=== PATIENT | male | born 1955 | race African-American/Black ===

== ENCOUNTER 2017-03-26 13:58 | Emergency (ER) | payer MEDICARE, OTHER ==
[~2017-03-26 13:58] MED LIST: 1-ME1LIQ PO; ADVAI100I PO; ALBU1AER INH; CANA10002 RECTAL; DILA2TAB4 PO; ENOX40P SQ; HYDR200T3 PO; METO25 PO; SULF500T35 PO; Z.0.COMMODE-3:1; Z.0.WALKERFRONT
[2017-03-26 14:00] VITALS: BP 153/92; PULSE 82; RESP 20; TEMP 98.2; O2SAT 99
--- NOTE | 2017-03-26 14:50 | PD ---
HPI Chief Complaint: Abdominal Pain Time Seen by Provider: 14:50 Travel History International Travel<30 days: No Contact w/Intl Traveler<30days: No Traveled to known affect area: No History of Present Illness HPI 61 YO male with PMH of HTN, non-Hodgkin's lymphoma, chronic airway obstruction, ulcerative colitis presents to the ED for evaluation of "2 week" history of nausea, lower abdominal discomfort, diarrhea and blood in the stool. Patient states this is similar to previous episodes of colitis and treated at home with sulfasalazine with no improvement of symptoms. Patient also complains of sinus congestion and SOB. PFSH Past Medical History Autoimmune Disease: No Blood Disorders: No Anxiety: No Depression: No Cancer: Yes (lymphoma, NON-Hodgkins) Cardiovascular Problems: No Chemotherapy: Yes (LAST [place] ) Diabetes: No Diminished Hearing: No Endocrine: No Glaucoma: No Genitourinary: Yes (HX BLOCKAGE IN PENIS - REMOVED X 2 NO CURRENT ) Hepatitis: Yes (HEPATITIS C) Hiatal Hernia: No Hypertension: Yes Immune Disorder: Yes (LUPUS ) Implanted Vascular Access Dvce: Yes (LCW PORT-REMOVED) Musculoskeletal: Yes (LEFT HIP PAIN ) Neurologic: No Psychiatric: No Reproductive: No Respiratory: No (SHORTNESS OF BREATH SINCE CHEMO STARTED 2008) Sickle Cell Disease: No Thyroid Disease: No Past Surgical History Abdominal Surgery: Yes (bx left groin pt states lymphoma is in remission) AICD: No Arteriovenous Shunt: No Cardiac Surgery: No Ear Surgery: No Endocrine Surgery: No Eye Surgery: No Genitourinary Surgery: Yes (cysto; BLOCKAGE EXCISED FROM PENIS X 2) Insulin Pump: No Joint Replacement: No Neurologic Surgery: No Oral Surgery: No Pacemaker: No Thoracic Surgery: No Other Surgery: Yes (PORT PLACEMENT/REMOVAL) Social History Alcohol Use: No Tobacco Use: No Substance Use: No (H/O IV DRUG USE 30 YRS AGO) Allergies-Medications (Allergen,Severity, Reaction): Coded Allergies: Ketorolac (Verified Allergy, Severe, EDEMA, 03/26/17) Lorcet (Verified Allergy, Severe, RASH ITCHING, 03/26/17) Lortab (Verified Allergy, Severe, ITCHING, 03/26/17) Penicillin (Verified Allergy, Severe, FACIAL SWELLING, 03/26/17) Percocet (Verified Allergy, Severe, Itching, 03/26/17) Propoxyphene (Verified Allergy, Severe, ITCHING, 03/26/17) Reported Meds & Prescriptions Reported Meds & Active Scripts Active Reported Hydroxychloroquine (Hydroxychloroquine Sulfate) 200 Mg Tab 200 Mg PO BID Takw with food Canasa Supp (Mesalamine) 1,000 Mg Supp 1,000 Mg RECTAL HS Amlodipine (Amlodipine Besylate) 5 Mg Tab 5 Mg PO DAILY Advair Diskus Inh (Fluticasone-Salmeterol Inh) 100-50 Mcg/Blist Aer 1 Puff INH BID Rinse mouth after use. Proair Hfa 8.5 GM Inh (Albuterol Sulfate) 90 Mcg/Act Aer 2 Puff INH Q6H PRN 108 mcg/actuation Sulfasalazine 500 Mg Tab 1,500 Mg PO Q12HR Review of Systems Except as stated in HPI: all other systems reviewed are Neg Physical Exam Narrative GENERAL: Well-nourished, well-developed black male in no acute distress. SKIN: Focused skin assessment warm/dry. HEAD: Normocephalic. EYES: No scleral icterus. No injection or drainage. ENT: Pearly wang tympanic membranes bilaterally. No tenderness to palpation of the facial sinuses. Oropharynx without erythema, edema or exudate. NECK: Supple, trachea midline. No JVD or lymphadenopathy. CARDIOVASCULAR: Regular rate and rhythm without murmurs, gallops, or rubs. RESPIRATORY: Breath sounds equal bilaterally. Diffuse end expiratory wheezing in all lung banks. No accessory muscle use. GASTROINTESTINAL: Abdomen soft, nondistended. Mildly tender to palpation in the right lower quadrant. No palpable masses. Active bowel sounds. MUSCULOSKELETAL: No cyanosis, or edema. Patient is ambulatory, moves the extremities spontaneously. RECTAL EXAM: No masses or tenderness, stool is brown. Guaiac positive. BACK: Nontender without obvious deformity. No CVA tenderness. Data Data Last Documented VS Vital Signs Date Time Temp Pulse Resp B/P Pulse Ox O2 Delivery O2 Flow Rate FiO2 03/26/17 16:12 78 18 137/65 97 Room Air 03/26/17 14:00 98.2 Orders Complete Blood Count With Diff (03/26/17 14:10) Comprehensive Metabolic Panel (03/26/17 14:10) Urinalysis - C+S If Indicated (03/26/17 14:10) Lipase (03/26/17 14:10) Chest, Single Ap (03/26/17 15:02) Methylprednisolone So Succ Inj (Solumedr (03/26/17 15:15) Albuterol-Ipratropium Neb (Duoneb Neb) (03/26/17 15:15) Iv Access Insert/Monitor (03/26/17 15:02) NPO (03/26/17 15:02) Sodium Chlor 0.9% 1000 Ml Inj (Ns 1000 M (03/26/17 15:02) Labs Laboratory Tests Test 03/26/17 03/26/17 14:38 14:54 Urine Color DARK-YELLOW Urine Turbidity CLEAR Urine pH 6.0 Urine Specific [place] 1.016 Urine Protein NEG mg/dL Urine Glucose (UA) NEG mg/dL Urine Ketones NEG mg/dL Urine Occult Blood NEG Urine Nitrite NEG Urine Bilirubin NEG Urine Urobilinogen LESS THAN 2.0 MG/DL Urine Leukocyte Esterase NEG Urine WBC 1 /hpf Urine Mucus FEW /lpf Microscopic Urinalysis Comment CULT NOT INDICATED White Blood Count 5.3 TH/MM3 Red Blood Count 6.10 MIL/MM3 Hemoglobin 13.9 GM/DL Hematocrit 43.6 % Mean Corpuscular Volume 71.5 FL Mean Corpuscular Hemoglobin 22.8 PG Mean Corpuscular Hemoglobin 31.9 % Concent Red Cell Distribution Width 16.0 % Platelet Count 224 TH/MM3 Mean Platelet Volume 7.9 FL Neutrophils (%) (Auto) 54.3 % Lymphocytes (%) (Auto) 22.7 % Monocytes (%) (Auto) 11.1 % Eosinophils (%) (Auto) 11.5 % Basophils (%) (Auto) 0.4 % Neutrophils # (Auto) 2.9 TH/MM3 Lymphocytes # (Auto) 1.2 TH/MM3 Monocytes # (Auto) 0.6 TH/MM3 Eosinophils # (Auto) 0.6 TH/MM3 Basophils # (Auto) 0.0 TH/MM3 CBC Comment DIFF FINAL Differential Comment Sodium Level 140 MEQ/L Potassium Level 3.8 MEQ/L Chloride Level 105 MEQ/L Carbon Dioxide Level 26.5 MEQ/L Anion Gap 9 MEQ/L Blood Urea Nitrogen 5 MG/DL Creatinine 0.77 MG/DL Estimat Glomerular Filtration 124 ML/MIN Rate Random Glucose 67 MG/DL Calcium Level 9.1 MG/DL Total Bilirubin 0.3 MG/DL Aspartate Amino Transf 13 U/L (AST/SGOT) Alanine Aminotransferase 14 U/L (ALT/SGPT) Alkaline Phosphatase 72 U/L Total Protein 7.8 GM/DL Albumin 4.0 GM/DL Lipase 140 U/L [facility] Medical Decision Making Medical Screen Exam Complete: Yes Emergency Medical Condition: Yes Differential Diagnosis colitis versus UC flare versus rectal bleeding versus anemia versus exacerbation of chronic airway disease versus other Narrative Course 61 YO male with PMH of HTN, non-Hodgkin's lymphoma, chronic airway obstruction, ulcerative colitis presents to the ED for evaluation of "2 week" history of nausea, lower abdominal discomfort, diarrhea and blood in the stool. Patient states this is similar to previous episodes of colitis and treated at home with sulfasalazine with no improvement of symptoms. Patient also complains of sinus congestion and SOB. Vitals reviewed. Patient is well-appearing on physical exam. There are diffuse expiratory wheezes in the bilateral lung banks. Abdomen soft, mildly tender to palpation in the right upper quadrant. Rectal exam guaiac positive. IV was established. Patient was administered 1 L normal saline, IV Solu-Medrol, DuoNeb 2. Lab work is reassuring--no anemia, no leukocytosis. I spoke with Dr. Galdamez who recommends following current medication regimen at home, follow-up in the office on Wednesday. I discussed this plan of care with the patient. He reports improvement of his breathing symptoms after DuoNeb treatment. He indicated understanding of the discharge instructions and is agreeable with the care plan. He is stable and discharged home. HemaPrompt Point of Care Internal Pos. & Neg. Controls: Passed Fecal Specimen Occult Blood: Positive Diagnosis Primary Impression: Ulcerative colitis with rectal bleeding Qualified Code: K51.911 - Ulcerative colitis with rectal bleeding, unspecified location Referrals: Gurvinder Galdamez MD Patient Instructions: General Instructions, Ulcerative Colitis (ED) Additional Instructions: Rest, hydrate. Resume at home respiratory medications. Continue with sulfasalazine and ASA suppositories. Call Dr. Galdamez's office tomorrow for follow up appointment. Disposition: 01 DISCHARGE HOME Condition: Stable Shawna Hayes Mar 26, 2017 14:50
[2017-03-26] MEDS ORDERED: AMLO5TAB2 PO (14:59)
[2017-03-26] MEDS ORDERED: ALBUAER3 INH (14:59)
[2017-03-26] MEDS ORDERED: CANA10002 RECTAL (14:59)
[2017-03-26] MEDS ORDERED: SULF500T3 PO (14:59)
[2017-03-26] MEDS ORDERED: ADVA100A INH (14:59)
[2017-03-26] MEDS ORDERED: HYDR200T3 PO (14:59)
[2017-03-26] MEDS ORDERED: SODIUM CHLOR 0.9% 1000 ML INJ 1,000 ML IV SCH (15:02)
[2017-03-26 15:03] LABS: AUTOMATED NEUTROPHIL # 2.9 TH/MM3 (1.8-7.7); BASOPHIL % 0.4 % (0.0-2.0); EOSINOPHIL # 0.6 TH/MM3 (0-0.4); EOSINOPHIL % 11.5 % (0.0-4.0); HEMATOCRIT 43.6 % (39.0-51.0); HEMO FLAGS DIFF FINAL; LYMPH % 22.7 % (9.0-44.0); LYMPHOCYTE # 1.2 TH/MM3 (1.0-4.8); MEAN CELL VOLUME 71.5 FL (80.0-100.0); MEAN CORPUSCULAR HEMOGLOBIN 22.8 PG (27.0-34.0); MEAN CORPUSCULAR HGB CONC 31.9 % (32.0-36.0); MONO % 11.1 % (0.0-8.0); NEUT % 54.3 % (16.0-70.0); PLATELET COUNT 224 TH/MM3 (150-450); WHITE BLOOD COUNT 5.3 TH/MM3 (4.0-11.0)
[2017-03-26 15:08] LABS: BLOOD, URINE NEG (NEG); COMMENT (UR) CULT NOT INDICATED; CULTURE IF INDICATED CULT NOT INDICATED; GLUCOSE,URINE NEG (NEG); KETONE, URINE NEG (NEG); MUCUS URINE FEW /lpf (OCC); NITRITE,URINE NEG (NEG); URINE COLOR DARK-YELLOW (YELLW/STRAW)
[2017-03-26] MEDS ORDERED: methylPREDNISolone SOD SUCC 125 MG/2 ML VIAL IVP ONE (15:15)
--- NOTE | 2017-03-26 15:45 | RADRPT ---
EXAM DATE/TIME: 03/26/2017 15:29 [place] COMPARISON: CHEST SINGLE AP, January 21, 2016, 20:27. INDICATIONS : Shortness of breath. MEDICAL HISTORY : Hypertension. SURGICAL HISTORY : None. ENCOUNTER: Initial ACUITY: 2 weeks PAIN SCORE: 0/10 LOCATION: chest FINDINGS: A single view of the chest demonstrates the lungs to be symmetrically aerated without evidence of mas s, infiltrate or effusion. The cardiomediastinal contours are unremarkable. Osseous structures are intact. CONCLUSION: No acute disease. Karthik Wilson MD FACR on March 26, 2017 at 15:43 Board Certified Radiologist. This report was verified electronically.
[2017-03-26 15:48] LABS: ANION GAP 9 MEQ/L (5-15); AST (GOT) 13 U/L (15-37); BICARBONATE 26.5 MEQ/L (21.0-32.0); BLOOD UREA NITROGEN 5 MG/DL (7-18); CHLORIDE 105 MEQ/L (98-107); GLOMERULAR FILTRATION RATE 124 ML/MIN (>89); POTASSIUM 3.8 MEQ/L (3.5-5.1); SODIUM (NA) 140 MEQ/L (136-145)
[2017-03-26 15:50] LABS: ALKALINE PHOSPHATASE 72 U/L (45-117); ALT (GPT) 14 U/L (12-78); TOTAL BILIRUBIN ADULT 0.3 MG/DL (0.2-1.0)
[2017-03-26 16:12] VITALS: BP 137/65; PULSE 78; RESP 18; O2SAT 97
[2017-03-26] MEDS: RESP: ALBUTEROL 2.5 MG/IPRATROPIUM 0.5 MG NEB (SCH) INH (16:45)
--- NOTE | 2017-03-26 16:59 | PD ---
Data Data Last Documented VS Vital Signs Date Time Temp Pulse Resp B/P Pulse Ox O2 Delivery O2 Flow Rate FiO2 03/26/17 16:12 78 18 137/65 97 Room Air 03/26/17 14:00 98.2 Orders Complete Blood Count With Diff (03/26/17 14:10) Comprehensive Metabolic Panel (03/26/17 14:10) Urinalysis - C+S If Indicated (03/26/17 14:10) Lipase (03/26/17 14:10) Chest, Single Ap (03/26/17 15:02) Methylprednisolone So Succ Inj (Solumedr (03/26/17 15:15) Albuterol-Ipratropium Neb (Duoneb Neb) (03/26/17 15:15) Iv Access Insert/Monitor (03/26/17 15:02) NPO (03/26/17 15:02) Sodium Chlor 0.9% 1000 Ml Inj (Ns 1000 M (03/26/17 15:02) Labs Laboratory Tests Test 03/26/17 03/26/17 14:38 14:54 Urine Color DARK-YELLOW Urine Turbidity CLEAR Urine pH 6.0 Urine Specific [place] 1.016 Urine Protein NEG mg/dL Urine Glucose (UA) NEG mg/dL Urine Ketones NEG mg/dL Urine Occult Blood NEG Urine Nitrite NEG Urine Bilirubin NEG Urine Urobilinogen LESS THAN 2.0 MG/DL Urine Leukocyte Esterase NEG Urine WBC 1 /hpf Urine Mucus FEW /lpf Microscopic Urinalysis Comment CULT NOT INDICATED White Blood Count 5.3 TH/MM3 Red Blood Count 6.10 MIL/MM3 Hemoglobin 13.9 GM/DL Hematocrit 43.6 % Mean Corpuscular Volume 71.5 FL Mean Corpuscular Hemoglobin 22.8 PG Mean Corpuscular Hemoglobin 31.9 % Concent Red Cell Distribution Width 16.0 % Platelet Count 224 TH/MM3 Mean Platelet Volume 7.9 FL Neutrophils (%) (Auto) 54.3 % Lymphocytes (%) (Auto) 22.7 % Monocytes (%) (Auto) 11.1 % Eosinophils (%) (Auto) 11.5 % Basophils (%) (Auto) 0.4 % Neutrophils # (Auto) 2.9 TH/MM3 Lymphocytes # (Auto) 1.2 TH/MM3 Monocytes # (Auto) 0.6 TH/MM3 Eosinophils # (Auto) 0.6 TH/MM3 Basophils # (Auto) 0.0 TH/MM3 CBC Comment DIFF FINAL Differential Comment Sodium Level 140 MEQ/L Potassium Level 3.8 MEQ/L Chloride Level 105 MEQ/L Carbon Dioxide Level 26.5 MEQ/L Anion Gap 9 MEQ/L Blood Urea Nitrogen 5 MG/DL Creatinine 0.77 MG/DL Estimat Glomerular Filtration 124 ML/MIN Rate Random Glucose 67 MG/DL Calcium Level 9.1 MG/DL Total Bilirubin 0.3 MG/DL Aspartate Amino Transf 13 U/L (AST/SGOT) Alanine Aminotransferase 14 U/L (ALT/SGPT) Alkaline Phosphatase 72 U/L Total Protein 7.8 GM/DL Albumin 4.0 GM/DL Lipase 140 U/L MDM Supervised Visit with RADHA: Yes Narrative Course The history, exam, and medical decision-making in the associated midlevel provider note were completed with my assistance. I reviewed and agree with the findings presented. I attest that I had a [id number] encounter with the patient on the same day, and personally performed and documented my assessment and findings in the medical record. *My assessment and Findings: This is a 61-year-old male who has a history of ulcerative colitis who presents to the emergency department with some lower abdominal discomfort, blood in his stool as well as some wheezing. He was given prednisone, DuoNeb's and labs were obtained which were all reassuring. His abdomen is benign. We spoke to Dr. Galdamez who is seeing the patient on Wednesday episode requested no additional treatment for his colitis at this time. Patient will be discharged home as he is very well-appearing. Diagnosis Primary Impression: Ulcerative colitis with rectal bleeding Qualified Code: K51.911 - Ulcerative colitis with rectal bleeding, unspecified location Referrals: Gurvinder Galdamez MD Patient Instructions: General Instructions, Ulcerative Colitis (ED) Departure Forms: Tests/Procedures Additional Instruction: Rest, hydrate. Resume at home respiratory medications. Continue with sulfasalazine and ASA suppositories. Call Dr. Galdamez's office tomorrow for follow up appointment. Disposition: 01 DISCHARGE HOME Condition: Stable Katty Varma MD Mar 26, 2017 16:59
== END 2017-03-26 17:13 | disposition home or self-care (01) ==
LOC: NEPD 13:58
DX: K51.911 Ulcerative colitis, unspecified with rectal bleeding (principal); R06.2 Wheezing; R09.81 Nasal congestion; R06.02 Shortness of breath; I10 Essential (primary) hypertension; C85.90 Non-Hodgkin lymphoma, unspecified, unspecified site; Z87.09 Personal history of other diseases of the respiratory system; Z87.19 Personal history of other diseases of the digestive system; Z87.448 Personal history of other diseases of urinary system; Z86.19 Personal history of other infectious and parasitic diseases; Z86.2 Personal history of diseases of the blood and blood-forming organs and certain disorders involving the immune mechanism; Z87.39 Personal history of other diseases of the musculoskeletal system and connective tissue
CPT/HCPCS: 71010; 80053; 81001; 83690; 85025; 94640; 94664; 96361; 96374; 99284; J2930; J7030

== ENCOUNTER → 2017-05-13 | Outpatient (CLI) | payer MEDICARE, OTHER ==
[~2017-05-13] MED LIST changes: -1-ME1LIQ PO; +ADVA100A INH; -ADVAI100I PO; -ALBU1AER INH; +ALBUAER3 INH; +AMLO5TAB2 PO; -DILA2TAB4 PO; -ENOX40P SQ; -METO25 PO; +SULF500T3 PO; -SULF500T35 PO; -Z.0.COMMODE-3:1; -Z.0.WALKERFRONT
--- NOTE | 2017-05-27 11:25 | RSPPFT ---
DATE OF PROCEDURE: 05/13/17 COMMENTS: Spirometry demonstrates an FEV1 of 3.1 at 87% of predicted, FVC of 4.2 at 94%, FEV1/FVC ratio is 74%. The FEF 25-75 is 66% of predicted. Post-bronchodilator study demonstrated minimal improvements in the FEF 25-75. Lung volumes demonstrated a raised RV/TLC ratio suggesting hyperinflation with air trapping. Diffusion capacity is normal. Flow volume loops suggest an obstructive pattern. IMPRESSION: 1. Early small airways obstruction. 2. Minimal response to use of bronchodilator. 3. Normal diffusion capacity.
== END ==
LOC: HRSP 07:44
PROVIDERS: ATTEND Internal Medicine Rheumatology
DX: J84.9 Interstitial pulmonary disease, unspecified (principal)
CPT/HCPCS: 94060; 94726; 94729

== ENCOUNTER 2018-07-04 05:04 | Inpatient (IN) ==
[2018-07-04] MEDS ORDERED: Metoprolol Tartrate 25 MG Tablet PO ONE (05:24)
[2018-07-04] MEDS ORDERED: Chlorhexidine Gluconate 2% 1 Pack (2 Cloths) TOPICAL ONE (05:24)
[2018-07-04] MEDS ORDERED: Dexamethasone Inj 20 MG/5 ML Vial IV.PUSH ONE (05:25)
[2018-07-04] MEDS ORDERED: Chlorhexidine 4% Topical 120 APPLIC/120 ML Bottle TOPICAL SCH (05:30)
[2018-07-04] MEDS ORDERED: Clindamycin 900 mg/NS Premix 900 MG/50 ML PIGGYBACK IV.SIG SCH (05:30)
[2018-07-04] MEDS ORDERED: Sodium Chlor 0.9% Inj 500 ML IV.SIG SCH (06:00)
[2018-07-04] MEDS ORDERED: Vancomycin Inj 1,000 MG in Sodium Chlor 0.9% Inj 250 ML IV.SIG SCH (06:00)
[2018-07-04] MEDS ORDERED: Post-op Orders (for Pharmacy) OTHER STA (06:31)
[2018-07-04] MEDS ORDERED: Glycopyrrolate Inj 1 MG/5 ML Syringe IV.PUSH ONE (06:49)
[2018-07-04] MEDS ORDERED: Lidocaine PF 1% Inj 5 ML Syringe OTHER ONE (06:49)
[2018-07-04] MEDS ORDERED: Neostigmine Inj 5 MG/5 ML Syringe IV.PUSH ONE (06:49)
[2018-07-04] MEDS ORDERED: Labetalol HCl Inj 100 MG/20 ML Vial IV.CONT ONE (06:49)
[2018-07-04] MEDS ORDERED: Sodium Chlor 0.9% Inj 40 ML, Bupivacaine Liposo PF 1.3% Inj 20 ML P-ARTICULR SCH ×2 (07:00)
[2018-07-04] MEDS ORDERED: TRANEXAMIC ACID IV.SIG SCH (07:00)
[2018-07-04] MEDS ORDERED: SODIUM CHLOR 0.9% IV.SIG SCH (07:00)
[2018-07-04] MEDS ORDERED: Tranexamic Acid Inj 3,000 MG in Sodium Chlor 0.9% Inj 100 ML P-ARTICULR SCH (07:00)
[2018-07-04] MEDS ORDERED: Loratadine 10 MG Tablet PO SCH (09:00)
[2018-07-04] MEDS ORDERED: amLODIPine 5 MG Tablet PO SCH (09:00)
[2018-07-04] MEDS ORDERED: sulfaSALAzine EC 500 MG Tablet PO SCH (09:00)
[2018-07-04] MEDS ORDERED: fentaNYL Citrate Inj 100 MCG/2 ML Ampul ONE (09:07)
--- NOTE | 2018-07-04 09:11 | XR ---
EXAM DATE: 07/04/2018 12:00 AM EDT AGE/SEX: 62 years / Male INDICATIONS: Right total hip arthroplasty. CLINICAL DATA: This is the patient's initial encounter. Patient reports that signs and symptoms have been present for 1 day and indicates a pain score of Nonresponsive. MEDICAL/SURGICAL HISTORY: Non-responsive. Non-responsive. COMPARISON: [facility], CT ABDOMEN AND PELVIS W/ CONTRAST, 01/19/2017. . FINDINGS: A right total hip arthroplasty is noted with prosthesis in good position. There is no acute fracture or dislocation. CONCLUSION: Status post right hip replacement with prosthesis in good position. Electronically signed by: Zay Tyler MD 07/04/2018 9:10 AM EDT
[2018-07-04] MEDS ORDERED: HYDROmorphone PF Inj 2 MG/ML Vial ONE ×2 (09:14→09:36)
[2018-07-04] MEDS ORDERED: HYDROmorphone PF Inj 2 MG/ML Vial IV.PUSH PRN (09:45)
--- NOTE | 2018-07-04 10:25 | MP ---
cc: Yasir Robb MD DATE OF OPERATION: 07/04/2018 PREOPERATIVE DIAGNOSIS: Right hip osteoarthritis. POSTOPERATIVE DIAGNOSIS: Right hip osteoarthritis. PROCEDURE PERFORMED: Right total hip arthroplasty. SURGEON: Yasir Robb MD. ANALYTICAL TECH: Jairo Cook PA-C. ANESTHESIA: General. ESTIMATED BLOOD LOSS: 200 mL. COMPLICATIONS: None. IMPLANTS USED: DePuy Corail size 10 press-fit standard offset femoral stem, size 52 solid Vaughn Gription cup, size 36 mm ceramic head, size 36 mm neutral highly cross-linked polyethylene liner, size +8.5 neck. JUSTIFICATION: This patient is a 62-year-old male with history of severe osteoarthritis involving the right hip joint. He has severe disabling pain with standing, walking, ambulation, weightbearing activities, and pain at rest. He has failed greater than 3 months of nonoperative conservative treatment to include medication therapy, injections, ambulatory assist aids, home exercise program, activity modification, weight loss attempts. X-rays of the right hip reveal severe osteoarthritis with [id number] joint space narrowing, subchondral sclerosis, subchondral cyst, osteophyte formation with subluxation. The patient was counseled as to the risks, benefits, and alternatives to a total hip arthroplasty. The risks were discussed include but not limited to anesthesia, bleeding, infection, damage to nerves and blood vessels, pain, stiffness, fracture, dislocation, leg length discrepancies, blood clots, pulmonary embolism, and even . The patient's pain is severe. He favored the benefits over the risks and did wish to proceed with surgery. PROCEDURE IN DETAIL: Written consent was obtained. The patient was identified by name, taken to the operating room and placed supine on the table. General anesthesia was administered, as well as 900 mg IV clindamycin along with 1 g of IV vancomycin as he does have a severe PENICILLIN ALLERGY. The right and left feet were placed in well-padded traction boots. The right hip and right lower extremity were prepped and draped using isopropyl alcohol, Hibiclens solution, and ChloraPrep solution. After a timeout was performed, a longitudinal incision was made over the anterior aspect of the right hip. The fascia was incised. Dissection was carried over the tensor fascia krishna beneath the rectus femorals to allow exposure of the anterior hip capsule. A capsulotomy incision was performed. An oscillating saw was used to perform a femoral neck cut. The osteoarthritic femoral head and neck component was removed. A 10 blade scalpel was used to excise the labrum. Sequential reaming began at a size 46 and was carried through to a size 52. Subsequently, a solid Vaughn Gription cup was implanted in approximately 45 degrees of abduction and 10 degrees of anteversion. There was good purchase and fixation after insertion of the solid cup. A screw hole eliminator was placed, followed by the neutral liner. The liner was impacted in place and tested for stability. Attention was turned to the femur, where the leg was externally rotated, extended, and adducted. The capsule was released off the undersurface of the greater trochanter to allow for elevation and lateralization of the femur. A box cutting osteotome was used to gain entry into the intramedullary canal of the femur, followed by a canal finder and sequential broaching to size 10. A calcar planer was used to plane the calcar. Trial head and neck combinations were evaluated and final component was implanted. With the current components, the leg could to achieve external rotation to 70 degrees and extension all the way down to the ground without evidence of anterior instability or impingement. Fluoroscopic imaging showed appropriate implantation of components. The incision was then thoroughly irrigated with sterile saline pulse lavage antibiotic-impregnated solution. The fascial layer was closed with #1 Vicryl suture, subcuticular 2-0 Vicryl suture. Skin was closed with Dermabond. Sterile dressing was applied. The patient tolerated the procedure well with no intraoperative complications noted. Jairo Cook PA-C, was present during the entire procedure to include patient positioning and the procedure itself. Medical necessity for a physician application assistant was indicated in this case due to the complexity of the procedure. He assisted with appropriate manipulation of the leg and also retraction of muscle, tendon, bone, neurovascular structures. He assisted with preparation of bone and also implantation of the prosthetic replacement. MD GINA Serna/beau , 08:36 AM , 08:46 AM
--- NOTE | 2018-07-04 14:18 | XR ---
EXAM DATE: 07/04/2018 6:27 AM EDT AGE/SEX: 62 years / Male INDICATIONS: Post-op right hip. CLINICAL DATA: This is the patient's initial encounter. Patient reports that signs and symptoms have been present for 1 day and indicates a pain score of 7/10. MEDICAL/SURGICAL HISTORY: Chronic obstructive pulmonary disease. Hypertension. . Left Hip Repl acement. COMPARISON: C, HIP LEFT AP ONLY W AP PELVIS, 01/20/2016. . FINDINGS: 4 views of the pelvis and right hip reveal interval placement of a total hip prosthesis on the right. This is in good position. Air is seen in the overlying soft tissues. Left hip prosthesis again note d and unchanged. No acute abnormality observed. Degenerative changes of the lower lumbar spine noted. CONCLUSION: Right hip prosthesis in good position without acute abnormality. Electronically signed by: Erick Park MD 07/04/2018 2:16 PM EDT
--- NOTE | 2018-07-04 15:07 | P.CONIM ---
History of Present Illness Service: [facility] Consult date: 07/04/18 Requesting Physician: Yasir Robb Reason for Consult: POST OP MEDICAL CARE Primary Care Provider: Jg Joshi MD, PhD Family Provider: Jg Joshi MD, PhD Chief Complaint: SP RIGHT TOTAL HIP ARTHROPLASTY History of Present Illness: Patient is a 62-year-old -[place] male with a history of severe osteoarthritis involving the right hip joint. He failed outpatient treatments. And therefore underwent a right total hip arthroplasty today by Dr. Robb tolerated the procedure well is seen postoperatively for help with medical management. His past medical history includes osteoarthritis, bilateral cataracts, history of colitis, history of COPD, history of hepatitis C, history of urinary tract obstruction, history of hypertension, history of chronic joint pain, history of lupus, history of non-Hodgkin's lymphoma. And history of arthroplasty of the left hip. We have been asked to help regarding medical management. And will get a.m. labs and follow him throughout the admission. Review of Systems All other systems reviewed negative except as stated in HPI [facility] - History History Provided By: Patient - Medical History Medical History: Medical History (Last Reviewed 07/04/18 @ 15:03 by Karthik Beebe DO) Arthritis COPD (chronic obstructive pulmonary disease) Cataracts, bilateral Colitis Hepatitis C History of urinary tract obstruction Hypertension Joint pain Lupus Non-Hodgkin lymphoma Sepsis Wears glasses - Surgical History Surgical History: Surgical History (Last Reviewed 07/04/18 @ 15:03 by Karthik Beebe DO) History of arthroplasty of left hip - Family History Family History: Family History (Last Updated 07/04/18 @ 15:03 by Karthik Beebe DO) Other Family history of hypertension - Social History I have reviewed the patient's Social History: Yes - Tobacco History Second Hand Smoke Exposure: No Tobacco Use In Past 30 Days: No Smoking Status: Former smoker Tobacco Type: Cigarettes - Alcohol History How Often Do You Have a Drink Containing Alcohol: Never - Substance Use History Substance History: Past History - Travel History History of Recent Travel: No Recent Travel in the [place] Within the Last 8 Weeks: No Recent Travel Out of the Country Within the Last 8 Weeks: No Medications and Allergies Active Medications: Active Medications Al Hydroxide/Mg Hydroxide (Milk Of Magnesia Liq) 30 ml PO BID PRN PRN Reason: Mild Constipation Amlodipine Besylate (Norvasc) 5 mg PO DAILY [facility] Aspirin (Aspirin Chew) 81 mg PO BID [facility] Last Admin: 07/04/18 09:58 Dose: 81 mg Chlorhexidine Gluconate (Hibiclens 4% Topical) 1 applicatio TOPICAL ONCE [facility] Stop: 07/08/18 05:29 Last Admin: 07/04/18 06:06 Dose: Not Given Diphenhydramine HCl (Benadryl) 25 mg PO Q6H PRN PRN Reason: ITCHING Hydromorphone HCl (Dilaudid Pf Inj) 1 mg IV.PUSH Q3H PRN PRN Reason: BREAKTHROUGH PAIN Hydromorphone HCl (Dilaudid) 2 mg PO Q4H PRN PRN Reason: PAIN 6-10;IF UNABLE TO TAKE PO Last Admin: 07/04/18 11:40 Dose: 2 mg Lactated Ringer's (Lr 1000 Ml Inj) 1,000 mls @ 30 mls/hr IV.SIG .Q24H [facility] Stop: 07/05/18 05:29 Last Infusion: 07/04/18 08:53 Dose: Infused Sodium Chloride (Ns Inj) 500 mls @ 30 mls/hr IV.SIG .Q10H [facility] Last Admin: 07/04/18 06:06 Dose: Not Given Clindamycin/Sodium Chloride (Cleocin 900 Mg/Ns Premix) 900 mg in 50 mls @ 100 mls/hr IV.SIG DISEASE CONTROL INSPECTOR [facility] Stop: 07/08/18 05:29 Last Infusion: 07/04/18 08:18 Dose: Infused Vancomycin HCl 1,000 mg/ (Sodium Chloride) 250 mls @ 250 mls/hr IV.SIG DISEASE CONTROL INSPECTOR [facility] Stop: 07/07/18 05:27 Last Infusion: 07/04/18 08:15 Dose: Infused Lactated Ringer's (Lr 1000 Ml Inj) 1,000 mls @ 80 mls/hr IV.CONT .[id number] [facility] Last Admin: 07/04/18 09:15 Dose: 80 mls/hr Vancomycin HCl 1,000 mg/ (Sodium Chloride) 250 mls @ 250 mls/hr IV.SIG Q12H [facility] Stop: 07/05/18 06:59 Loratadine (Claritin) 10 mg PO DAILY [facility] Miscellaneous Information (Misc Nursing Information) 0 each OTHER UNSCH PRN PRN Reason: SEE LABEL COMMENTS Stop: 07/05/18 09:00 Multivitamins/Minerals (Theragran-M) 1 tab PO BID [facility] Stop: 09/02/18 08:59 Ondansetron HCl (Zofran Inj) 4 mg IV.PUSH Q6H PRN PRN Reason: NAUSEA OR VOMITING Povidone Iodine (Betadine 7.5% Scrub) 1 applicatio TOPICAL ONCE [facility] Stop: 07/08/18 05:59 Last Admin: 07/04/18 06:06 Dose: 1 applicatio Senna/Docusate Sodium (Sheryl-Colace) 1 tab PO BID [facility] Sennosides (Senokot) 17.2 mg PO BID PRN PRN Reason: Moderate Constipation Sodium Chloride (Ns Flush) 2 ml IV.FLUSH PRN PRN PRN Reason: FLUSH AFTER USING IV ACCESS Sodium Chloride (Ns Flush) 2 ml IV.FLUSH BID [facility] Sulfasalazine (Azulfidine Ec) 500 mg PO DAILY [facility] Zolpidem Tartrate (Ambien) 5 mg PO HS PRN PRN Reason: INSOMNIA Allergies Allergy/AdvReac Type Severity Reaction Status Date / Time hydrocodone Allergy Severe ITCHING Verified 07/04/18 05:36 ketorolac Allergy Severe EDEMA Verified 07/04/18 05:36 oxycodone Allergy Severe Itching Verified 07/04/18 05:36 penicillin G Allergy Severe FACIAL Verified 07/04/18 05:36 SWELLING propoxyphene Allergy Severe ITCHING Verified 07/04/18 05:36 Home Medications Medication Instructions Recorded Confirmed Type albuterol sulfate [ProAir HFA] 2 puff INHALATION BID 06/16/18 07/04/18 History amlodipine 5 mg PO DAILY 06/16/18 07/04/18 History aspirin [Adult Low Dose Aspirin] 81 mg PO DAILY 06/16/18 07/04/18 History fluticasone-salmeterol [Advair 1 puff INHALATION BID 06/16/18 07/04/18 History Diskus] hydroxychloroquine 200 mg PO DAILY 06/16/18 07/04/18 History ibuprofen 200 mg PO TID PRN 06/16/18 07/04/18 History loratadine [Claritin] 10 mg PO DAILY 06/16/18 07/04/18 History mesalamine [Canasa] 1 supp SD HS 06/16/18 07/04/18 History sulfasalazine 0.5 g PO DAILY 06/16/18 07/04/18 History tramadol 50 mg PO Q6H PRN 06/16/18 07/04/18 History Exam Vital signs: Vital Signs 07/04/18 05:40 07/04/18 08:55 07/04/18 09:00 Temperature 98.9 F 97.6 F Pulse Rate 93 H 85 79 Respiratory Rate 20 17 20 Blood Pressure 147/96 H 141/87 H 133/78 Pulse Oximetry 98 92 L 94 L 07/04/18 09:15 07/04/18 09:30 07/04/18 09:45 Temperature Pulse Rate 75 71 74 Respiratory Rate 17 18 15 Blood Pressure 133/80 141/77 H 142/80 H Pulse Oximetry 96 95 97 07/04/18 10:00 07/04/18 12:00 Temperature 97.6 F 98.3 F Pulse Rate 74 72 Respiratory Rate 18 18 Blood Pressure 141/82 H 147/84 H Pulse Oximetry 95 94 L Intake & Output 07/03/18 07/04/18 07/04/18 18:59 06:59 18:59 Intake Total 1417.085 / 1417.085 Output Total 100 / 100 Balance 1317.085 / 1317.085 Weight 113.9 kg Intake: IV 1417.085 / 1417.085 Cleocin 900 mg/NS Premix 900 mg 50 / 50 In 50 ml @ 100 mls/hr IV.SIG DISEASE CONTROL INSPECTOR [facility] Rx#:[id number] LR 1000 mL Inj 1,000 ML @ 30 1000 / 1000 mls/hr IV.SIG .Q24H [facility] Rx#: [id number] Cyklokapron Inj 1,708.5 MG In 117.085 / 117.085 NS Inj 100 ML @ 200 mls/hr IV. SIG ONCE [facility] Rx#:[id number] Vancomycin Inj 1,000 MG In NS 250 / 250 Inj 250 ML @ 250 mls/hr IV.SIG DISEASE CONTROL INSPECTOR [facility] Rx#:[id number] Output: Estimated Blood Loss 100 / 100 Other: Weight On Admission 113.9 kg Narrative: GENERAL: Awake alert and oriented x3 talkative and cooperative appears stated age SKIN: Warm and dry. HEAD: Atraumatic. Normocephalic. EYES: Pupils equal and round. No scleral icterus. No injection or drainage. EOMI ENT: No nasal bleeding or discharge. Mucous membranes pink and moist. Tongue is midline NECK: Trachea midline. No JVD. Supple CARDIOVASCULAR: Regular rate and rhythm. RESPIRATORY: No accessory muscle use. Clear to auscultation. Breath sounds equal bilaterally. GASTROINTESTINAL: Abdomen soft, non-tender, nondistended. Hepatic and splenic margins not palpable. MUSCULOSKELETAL: Extremities without clubbing, cyanosis, or edema. No obvious deformities. NEUROLOGICAL: Awake and alert. No obvious cranial nerve deficits. Motor grossly within normal limits. Five out of 5 muscle strength in the arms and legs. Normal speech. PSYCHIATRIC: Appropriate mood and affect; insight and judgment normal. Results - Labs Labs: Laboratory Results - last 24 hr 07/04/18 05:48 Blood Type B Positive Antibody Screen Negative - Imaging Impressions Hip X-Ray 07/04/18 00:00 CONCLUSION: Status post right hip replacement with prosthesis in good position. Hip X-Ray 07/04/18 06:27 CONCLUSION: Right hip prosthesis in good position without acute abnormality. Assessment and Plan - Plan Status post right total hip arthroplasty -Pain control -DVT prophylaxis per orthopedics -Physical therapy and Occupational Therapy -States scheduled to go home with home health care Osteoarthritis continue pain control Multiple allergies is on Dilaudid for pain History of colitis continue home medications History of COPD nebulized treatments as needed Hypertension resume home medications Lupus currently stable History of non-Hodgkin's lymphoma stable at this time We will get a.m. labs Continue on DVT prophylaxis per orthopedics GI prophylaxis with Pepcid Code Status: Full code Discussed Condition With: RN and patient Discharge Planning: Discharge when cleared by orthopedics with home health care
[2018-07-04] MEDS: Vancomycin Inj 1,000 MG in Sodium Chlor 0.9% Inj 250 ML IV.SIG SCH (17:34)
[2018-07-04] MEDS ORDERED: Zolpidem Tartrate 5 MG Tablet PO PRN (21:00)
[2018-07-04] MEDS: Senna/Docusate Sodium 8.6/50 MG Tablet PO SCH (21:20)
[2018-07-04] MEDS: Multivitamin/Minerals Therapeutic Tablet PO SCH (21:21)
[2018-07-05] MEDS: Vancomycin Inj 1,000 MG in Sodium Chlor 0.9% Inj 250 ML IV.SIG SCH (06:45)
[2018-07-05 06:52] LABS: Albumin 3.6 g/dL (3.4-5.0); Anion Gap 10 meq/L (5-15); Aspartate Aminotransferase 18 U/L (15-37); Blood Urea Nitrogen 12 mg/dL (7-18); Calcium 8.5 mg/dL (8.5-10.1); Carbon Dioxide 26.4 meq/L (21.0-32.0); Chloride 101 meq/L (98-107); Glomerular Filtration Rate Greater Than 89 mL/min (>89); Glucose,Random 96 mg/dL (74-106); Magnesium 2.1 mg/dL (1.5-2.5); Potassium 4.4 meq/L (3.5-5.1); Sodium 137 meq/L (136-145)
[2018-07-05 06:53] LABS: Alanine Aminotransferase 29 U/L (12-78); Phosphorus 3.4 mg/dL (2.5-4.9)
[2018-07-05 07:01] LABS: Alkaline Phosphatase 73 U/L (45-117); Free T4 (Free Thyroxine) 1.06 ng/dL (0.76-1.46); Thyroid Stimulating Hormone 0.174 uIU/mL (0.358-3.740); Total Protein 7.3 g/dL (6.4-8.2)
[2018-07-05 07:54] LABS: Baso % (Auto) 0.1 % (0.0-2.0); Eos % (Auto) 0.1 % (0.0-4.0); Hematocrit 39.3 % (39.0-51.0); Hemoglobin 13.2 gm/dL (13.0-17.0); Lymph # (Auto) 0.9 th/mm3 (1.0-4.8); Lymph % (Auto) 6.9 % (9.0-44.0); Mean Corpuscular HGB Conc 33.6 % (32.0-36.0); Mean Corpuscular Hemoglobin 23.6 pg (27.0-34.0); Mean Corpuscular Volume 70.1 fL (80.0-100.0); Mean Platelet Volume 8.1 fL (7.0-11.0); Mono % (Auto) 7.6 % (0.0-8.0); Neut # (Auto) 11.3 th/mm3 (1.8-7.7); Neut % (Auto) 85.3 % (16.0-70.0); Platelet Count 156 th/mm3 (150-450); Red Blood Count 5.61 mil/mm3 (4.50-5.90); Red Cell Distribution Width 16.5 % (11.6-17.2); White Blood Count 13.3 th/mm3 (4.0-11.0)
--- NOTE | 2018-07-05 08:28 | P.PNOP ---
Subjective Interval history: pain controlled. walked yesterday with PT. Physical Exam Vital signs: Vital Signs 07/04/18 08:55 07/04/18 09:00 07/04/18 09:15 Temperature 97.6 F Pulse Rate 85 79 75 Respiratory Rate 17 20 17 Blood Pressure 141/87 H 133/78 133/80 Pulse Oximetry 92 L 94 L 96 07/04/18 09:30 07/04/18 09:45 07/04/18 10:00 Temperature 97.6 F Pulse Rate 71 74 74 Respiratory Rate 18 15 18 Blood Pressure 141/77 H 142/80 H 141/82 H Pulse Oximetry 95 97 95 07/04/18 12:00 07/04/18 16:00 07/04/18 20:00 Temperature 98.3 F 97.4 F L 98.4 F Pulse Rate 72 85 95 H Respiratory Rate 18 18 18 Blood Pressure 147/84 H 157/83 H 157/78 H Pulse Oximetry 94 L 97 95 07/05/18 00:00 07/05/18 04:00 Temperature 97.8 F 98.4 F Pulse Rate 105 H 88 Respiratory Rate 16 17 Blood Pressure 144/83 H 146/86 H Pulse Oximetry 97 96 Intake & Output 07/04/18 07/05/18 07/05/18 18:59 06:59 18:59 Intake Total 2267.085 / 2267.085 Output Total 100 / 100 Balance 2167.085 / 2167.085 Weight 113.852 kg Intake: IV 1667.085 / 1667.085 Cleocin 900 mg/NS Premix 900 mg 50 / 50 In 50 ml @ 100 mls/hr IV.SIG RETAINING ROOM CUTTER [facility] Rx#:[id number] LR 1000 mL Inj 1,000 ML @ 30 1000 / 1000 mls/hr IV.SIG .Q24H [facility] Rx#: [id number] Cyklokapron Inj 1,708.5 MG In 117.085 / 117.085 NS Inj 100 ML @ 200 mls/hr IV. SIG ONCE [facility] Rx#:[id number] Vancomycin Inj 1,000 MG In NS 500 / 500 Inj 250 ML @ 250 mls/hr IV.SIG Q12H [facility] Rx#:[id number] Oral 600 / 600 Output: Estimated Blood Loss 100 / 100 Other: # Voids 3 Narrative: in bed, nad dressing c/d/i thigh soft neg homans nvi Results - Labs CBC & Chem 7: 07/05/18 07:35 07/05/18 04:42 Laboratory Results - last 24 hr 07/05/18 07/05/18 04:42 07:35 WBC 13.3 H RBC 5.61 Hgb 13.2 Hct 39.3 MCV 70.1 L MCH 23.6 L MCHC 33.6 RDW 16.5 Plt Count 156 MPV 8.1 Neut % (Auto) 85.3 H Lymph % (Auto) 6.9 L Slope % (Auto) 7.6 Eos % (Auto) 0.1 Baso % (Auto) 0.1 Neut # (Auto) 11.3 H Lymph # (Auto) 0.9 L Slope # (Auto) 1.0 H Eos # (Auto) 0.0 Baso # (Auto) 0.0 WBC Differential . Differential Comment Auto diff final Hematology Comments Sodium 137 Potassium 4.4 Chloride 101 Carbon Dioxide 26.4 Anion Gap 10 BUN 12 Creatinine 0.80 Estimated GFR Greater than 89 Random Glucose 96 Calcium 8.5 Phosphorus 3.4 Magnesium 2.1 Total Bilirubin 0.4 AST 18 ALT 29 Alkaline Phosphatase 73 Total Protein 7.3 Albumin 3.6 TSH 0.174 L Free T4 1.06 - Imaging Impressions Hip X-Ray 07/04/18 00:00 CONCLUSION: Status post right hip replacement with prosthesis in good position. Hip X-Ray 07/04/18 06:27 CONCLUSION: Right hip prosthesis in good position without acute abnormality. Assessment and Plan - Ortho Post Op Day # 1 - Assessment and Plan s/p R PERCY wbat ok to maintain dressing unless saturated asa 81 d/c planning home with hhc and pt. cleared today if does well in PT f/up dr. prather 2 weeks
--- NOTE | 2018-07-05 08:31 | P.DCO ---
- Physical Therapy Physical Therapy: Gait training, Safety evaluation Hip: Total hip, Protocol: Right Right Lower Extremity Weight Bearing: Weight bearing as tolerated - Nursing RN: 3 days/week x 2 weeks Nursing: Dressing changes Dressing changes: Do not change dressing, Daily dressing change - Certification Need for Home Health services: I have seen patient Gurvinder Argueta on 07/05/18. My clinical findings support the need for the requested home health care services because: Need for Home Health Services: Limited ability to care for self, High risk of falls Homebound Certification: I certify that my clinical findings support that this patient is homebound because: Homebound Certification: Post-op weakness, Unsteady gait/balance
[2018-07-05] MEDS: Senna/Docusate Sodium 8.6/50 MG Tablet PO SCH (08:40)
[2018-07-05] MEDS: Multivitamin/Minerals Therapeutic Tablet PO SCH (08:41)
[2018-07-05 08:54] VITALS: RESP 18
--- NOTE | 2018-07-05 09:43 | P.PNIM ---
Physical Exam Vital signs: Vital Signs 07/04/18 09:45 07/04/18 10:00 07/04/18 12:00 Temperature 97.6 F 98.3 F Pulse Rate 74 74 72 Respiratory Rate 15 18 18 Blood Pressure 142/80 H 141/82 H 147/84 H Pulse Oximetry 97 95 94 L 07/04/18 16:00 07/04/18 20:00 07/05/18 00:00 Temperature 97.4 F L 98.4 F 97.8 F Pulse Rate 85 95 H 105 H Respiratory Rate 18 18 16 Blood Pressure 157/83 H 157/78 H 144/83 H Pulse Oximetry 97 95 97 07/05/18 04:00 07/05/18 08:00 Temperature 98.4 F 97.9 F Pulse Rate 88 100 H Respiratory Rate 17 18 Blood Pressure 146/86 H 128/69 Pulse Oximetry 96 97 Intake & Output 07/04/18 07/05/18 07/05/18 18:59 06:59 18:59 Intake Total 2267.085 / 2267.085 1000 / 1000 Output Total 100 / 100 Balance 2167.085 / 2167.085 1000 / 1000 Weight 113.852 kg Intake: IV 1667.085 / 0291.133 3319 / 1000 LR 1000 mL Inj 1,000 ML @ 80 1000 / 1000 mls/hr IV.CONT .[id number] [facility] Rx# :[id number] Cleocin 900 mg/NS Premix 900 mg 50 / 50 In 50 ml @ 100 mls/hr IV.SIG CRITICAL CARE UNIT MANAGER [facility] Rx#:[id number] LR 1000 mL Inj 1,000 ML @ 30 1000 / 1000 mls/hr IV.SIG .Q24H [facility] Rx#: [id number] Cyklokapron Inj 1,708.5 MG In 117.085 / 117.085 NS Inj 100 ML @ 200 mls/hr IV. SIG ONCE [facility] Rx#:[id number] Vancomycin Inj 1,000 MG In NS 500 / 500 Inj 250 ML @ 250 mls/hr IV.SIG Q12H [facility] Rx#:[id number] Oral 600 / 600 Output: Estimated Blood Loss 100 / 100 Other: # Voids 3 Results - Labs CBC & Chem 7: 07/05/18 07:35 07/05/18 04:42 Laboratory Results - last 24 hr 07/05/18 07/05/18 04:42 07:35 WBC 13.3 H RBC 5.61 Hgb 13.2 Hct 39.3 MCV 70.1 L MCH 23.6 L MCHC 33.6 RDW 16.5 Plt Count 156 MPV 8.1 Neut % (Auto) 85.3 H Lymph % (Auto) 6.9 L Swain % (Auto) 7.6 Eos % (Auto) 0.1 Baso % (Auto) 0.1 Neut # (Auto) 11.3 H Lymph # (Auto) 0.9 L Swain # (Auto) 1.0 H Eos # (Auto) 0.0 Baso # (Auto) 0.0 WBC Differential . Differential Comment Auto diff final Hematology Comments Sodium 137 Potassium 4.4 Chloride 101 Carbon Dioxide 26.4 Anion Gap 10 BUN 12 Creatinine 0.80 Estimated GFR Greater than 89 Random Glucose 96 Calcium 8.5 Phosphorus 3.4 Magnesium 2.1 Total Bilirubin 0.4 AST 18 ALT 29 Alkaline Phosphatase 73 Total Protein 7.3 Albumin 3.6 TSH 0.174 L Free T4 1.06 - Imaging Impressions Hip X-Ray 07/04/18 06:27 CONCLUSION: Right hip prosthesis in good position without acute abnormality. Assessment and Plan - Plan Patient is a 62-year-old -[place] male with past medical history includes osteoarthritis, bilateral cataracts, colitis, COPD, hepatitis C, urinary tract obstruction, hypertension, chronic joint pain, lupus, non- Hodgkin's lymphoma And arthroplasty of the left hip. Patient history of severe osteoarthritis involving the right hip joint., failed outpatient treatments s/p right total hip arthroplasty today by Dr. Robb. Medicine team is consulted for medical management. Status post right total hip arthroplasty/Severe osteoarthritis -Pain control -DVT prophylaxis per orthopedics -Physical therapy and Occupational Therapy -States scheduled to go home with home health care Hypertension BP slightly elevated on admission -continue home medication, Norvasc -monitor BP Hx COPD No SOB, no wheezes -restart on home medication, Advair, and ProAir - Monitor respiratory status Hx colitis / lupus/non-Hodgkin's lymphoma/hepatitis C Stable -continue home medications Continue on DVT prophylaxis per orthopedics GI prophylaxis with Pepcid Code Status: full code Discussed Condition With: patient and nurse
[2018-07-05 14:03] VITALS: BP 140/75; PULSE 95; TEMP 98.3; O2SAT 94
[2018-07-05 20:13] LABS: Hemoglobin A1c 5.9 % (4.3-6.0)
[2018-07-05] MEDS ORDERED: Non-Formulary Drug (Fluticasone-Salmeterol [Advair Diskus] 1 PUFF) INHALATION SCH (21:00)
[2018-07-05] MEDS ORDERED: Budesonide-Formoterol 160/4.5 MCG 6 GM Inhaler INH SCH (21:00)
--- NOTE | 2018-07-06 07:43 | MD ---
cc: Yasir Robb MD DATE OF DISCHARGE: 07/05/2018 ADMITTING DIAGNOSIS: Severe degenerative osteoarthritis, right hip. DISCHARGE DIAGNOSIS: Severe degenerative osteoarthritis, right hip. HISTORY OF PRESENT ILLNESS: Mr. Argueta is a 62-year-old male who presented to the orthopedic clinic for evaluation by Dr. Yasir Robb regarding her severe and progressive right hip pain. The patient states the pain has been bothering her for many years and is currently inhibiting his ability to ambulate safely and his daily activities. He notes he has a severe aching sensation with weightbearing activities. He has no alleviating factors at this point in time, although in the past he has tried medications, assistive devices, physical therapy, and home exercises without relief of symptoms. He does have a history of a well-functioning left total hip arthroplasty. The patient has x-ray evidence of severe degenerative osteoarthritis of the right hip. While in the office, the patient was counseled on his diagnosis and treatment options. Risks, benefits, and indications were discussed. The patient did elect to proceed with surgical intervention to include a right total hip arthroplasty. DATE OF SURGERY: On 07/04/2018, right total hip arthroplasty, anterior approach. POSTOP: After surgery, the patient was admitted [facility] where he received appropriate medical management, pain control, DVT prophylaxis, as well as physical therapy. DISCHARGE: Once being discharged from the hospital, the patient is cleared to go home where he will receive home health care and home physical therapies. He is in stable condition. He may weight bear as tolerated with anterior hip precautions. He has been instructed on wound care management. He has been provided prescriptions for pain control and DVT prophylaxis medication. He has also been provided a followup appointment in approximately 2 weeks from his date of surgery. The patient asked appropriate questions, which have been answered. The patient is cleared for discharge. Dictated by Yasir Hancock Yasir Robb MD JWM/beau , 08:34 AM , 08:41 AM
== END 2018-07-05 15:16 | disposition home health service (06) ==
LOC: HSDI 05:04 → N06 10:24
PROVIDERS: ADMIT Orthopaedic Surgery Sports Medicine; ATTEND Orthopaedic Surgery Sports Medicine